=== PATIENT | male | born 1965 ===

== ENCOUNTER 2018-06-27 07:43 | Outpatient (CLI) | payer OTHER ==
[~2018-06-27] VITALS: Ht 180.3 cm; Wt 104.3 kg
[2018-06-27] MEDS ORDERED: CIPRO500 MG PO (09:44)
[2018-06-27] MEDS ORDERED: FLUCONAZOLE100 MG PO (09:45)
== END 2018-06-27 08:00 | disposition home or self-care (01) ==
LOC: OFIC 805 07:43
DX: H66.93 Otitis media, unspecified, bilateral (principal); B37.84 Candidal otitis externa; H72.93 Unspecified perforation of tympanic membrane, bilateral; J31.0 Chronic rhinitis

== ENCOUNTER 2018-07-04 07:26 | Outpatient (CLI) | payer OTHER ==
[~2018-07-04] VITALS: Ht 152.4 cm; Wt 104.3 kg
[~2018-07-04 07:26] MED LIST: CIPRO500 MG PO; FLUCONAZOLE100 MG PO
[2018-07-04] MEDS ORDERED: CIPRO500 MG PO (10:02)
[2018-07-04] MEDS ORDERED: CLOTRIMAZOLE30 ML OTIC (10:02)
== END 2018-07-04 07:40 | disposition home or self-care (01) ==
LOC: OFIC 805 07:26
DX: H66.93 Otitis media, unspecified, bilateral (principal); B37.84 Candidal otitis externa; J31.0 Chronic rhinitis

== ENCOUNTER 2018-07-11 07:31 | Outpatient (CLI) | payer OTHER ==
[~2018-07-11] VITALS: Ht 152.4 cm; Wt 104.3 kg
[~2018-07-11 07:31] MED LIST changes: +CLOTRIMAZOLE30 ML OTIC
== END 2018-07-11 07:47 | disposition home or self-care (01) ==
LOC: OFIC 805 07:31
DX: B36.9 Superficial mycosis, unspecified (principal); J31.0 Chronic rhinitis

== ENCOUNTER 2018-07-25 08:23 | Outpatient (CLI) | payer OTHER ==
[~2018-07-25] VITALS: Ht 152.4 cm; Wt 104.3 kg
== END 2018-07-25 08:40 | disposition home or self-care (01) ==
LOC: OFIC 805 08:23
DX: H66.93 Otitis media, unspecified, bilateral (principal); B37.84 Candidal otitis externa; J31.0 Chronic rhinitis

== ENCOUNTER 2018-08-03 07:28 | Outpatient (CLI) | payer OTHER ==
[~2018-08-03] VITALS: Ht 152.4 cm; Wt 104.3 kg
== END 2018-08-03 07:45 | disposition home or self-care (01) ==
LOC: OFIC 805 07:28
DX: H61.23 Impacted cerumen, bilateral (principal); J31.0 Chronic rhinitis; B36.9 Superficial mycosis, unspecified; B37.84 Candidal otitis externa; H73.23 Unspecified myringitis, bilateral

== ENCOUNTER 2018-08-10 07:48 | Outpatient (CLI) | payer OTHER ==
[~2018-08-10] VITALS: Ht 152.4 cm; Wt 104.3 kg
== END 2018-08-10 08:10 | disposition home or self-care (01) ==
LOC: OFIC 805 07:48
DX: B37.84 Candidal otitis externa (principal); H61.23 Impacted cerumen, bilateral

== ENCOUNTER 2018-09-07 07:30 | Outpatient (CLI) | payer OTHER ==
[~2018-09-07] VITALS: Ht 152.4 cm; Wt 104.3 kg
== END 2018-09-07 07:45 | disposition home or self-care (01) ==
LOC: OFIC 805 07:30
DX: H60.8X3 Other otitis externa, bilateral (principal); H61.23 Impacted cerumen, bilateral; H93.13 Tinnitus, bilateral; H92.03 Otalgia, bilateral; H90.0 Conductive hearing loss, bilateral